=== PATIENT | female | born 1995 | race Two or more races ===

== ENCOUNTER 2019-04-22 07:21 | Emergency (ER) | payer OTHER ==
[~2019-04-22] VITALS: Ht 167.6 cm; Wt 76.7 kg
[2019-04-22 07:32] VITALS: Ht 167.6 cm; Wt 76.7 kg
[2019-04-22 08:18] LABS: BASOPHIL % 0.6 % (0-2); PLATELET COUNT 230 x10^3mcL (130-400); RED CELL DISTRIBUTION WIDTH 12.7 % (11.5-14.5)
[2019-04-22 08:20] LABS: CALCIUM 8.7 mg/dL (8.5-10.1); CHLORIDE SERUM 106 mmol/L (98-107); GFR1 > 60 mL/min; GLUCOSE SERUM 114 mg/dL (74-106); SODIUM SERUM 141 mmol/L (136-145)
[2019-04-22 10:15] VITALS: BP 129/79
== END 2019-04-22 10:25 | disposition short-term general hospital (02) ==
LOC: ED 07:21
PROVIDERS: Emergency Medicine
DX: S68.111A Complete traumatic metacarpophalangeal amputation of left index finger, initial encounter (principal); W31.89XA Contact with other specified machinery, initial encounter; Y93.89 Activity, other specified; Y92.89 Other specified places as the place of occurrence of the external cause; Y99.8 Other external cause status
CPT/HCPCS: 90715; J0690; J2270; Q0092